=== PATIENT | female | born 1970 | race Caucasian/White ===

== ENCOUNTER → 2019-08-06 | Outpatient (CLI) | payer BC ==
--- NOTE | 2019-08-06 11:14 | MR ---
EXAMINATION TYPE: MR brain wo/w con DATE OF EXAM: 08/06/2019 COMPARISON: Unavailable, comparison made to previous report of 2008 HISTORY: Relapsing remitting mult iple sclerosis TECHNIQUE: Multiplanar, multisequence images of the brain and brainstem is performed without and with IV contras t, utilizing 7.5 mL intravenous Gadavist . FINDINGS: There is artifact presumably from dental work. There are extensive confluent and scattered hyperintensities within the periventricular, pericallosal , subcortical and juxtacortical white matter. Greater than 50 lesions are present. The largest in the pericallosal white matter in the left frontal lobe on axial image 21 measures 10 mm in transverse di mension and on sagittal image #14 11 mm in cephalad to caudal direction, multiple pericallosal foci s how perpendicular arrangement consistent with Stevenson's fingers. Diffusion weighted images demonstrate no evidence of a recent infarct or other diffusion abnormality. Cerebral spinal fluid signal focus is present in the midline inferior to the cerebellum, there may b e an arachnoid cyst present. The ventricular system and cisternal spaces are normal in size and appea dillan. The brain volume is age appropriate. Midline structures demonstrate normal morphology. The craniocervical junction appears within normal limits. Post contrast images demonstrate no abnormal enhancement. The dural venous sinuses appear pa tent. The visualized sinuses are clear and the globes are intact. IMPRESSION: Findings consistent with patient's history of multiple sclerosis. No enhancing plaques ar e evident however. Possible arachnoid cyst inferior posterior fossa.
== END | disposition home or self-care (01) ==
LOC: RADMRIMAIN 09:16
PROVIDERS: ATTEND Psychiatry & Neurology Neurology
DX: G35 Multiple sclerosis (principal)
CPT/HCPCS: 70553; A9585

== ENCOUNTER → 2020-09-14 | Outpatient (CLI) | payer BC ==
--- NOTE | 2020-09-14 15:49 | US ---
EXAMINATION TYPE: US transvaginal DATE OF EXAM: 09/14/2020 COMPARISON: NONE CLINICAL HISTORY: N92.0 Excessive and frequent menstruation. heavy menses with clots for a few years TECHNIQUE: Transvaginal (TV). Date of LMP: 08/21/20 EXAM MEASUREMENTS: Uterus: 10.0 x 5.4 x 6.2 cm Endometrial Stripe: 1.4 cm Right Ovary: 1.8 x 1.4 x 1.6 cm Left Ovary: 3.0 x 1.9 x 2.9 cm 1. Uterus: Anteverted heterogeneous, Nabothian cysts 2. Endometrium: hypoechoic area = 1.2 x 0.9 x 1.0cm 3. Right Ovary: appears wnl 4. Left Ovary: appears wnl 5. Bilateral Adnexa: wnl 6. Posterior cul-de-sac: wnl IMPRESSION: Correlate for appropriate phase of patient's follicular cycle for endometrial stripe montrell carrillo, there is a heterogeneous, masslike appearance to the endometrium at the upper aspect, consider biopsy as indicated, follow-up recommended
== END | disposition home or self-care (01) ==
LOC: RADUSWWP 14:40
PROVIDERS: ATTEND Obstetrics & Gynecology
DX: R93.89 Abnormal findings on diagnostic imaging of other specified body structures (principal)
CPT/HCPCS: 76830

== ENCOUNTER → 2020-11-16 | Outpatient (CLI) | payer BC ==
[2020-11-16 12:33] LABS: Basophils % (A) 0 %; Eosinophils # (A) 0.1 k/uL (0-0.7); Eosinophils % (A) 2 %; HCT 38.9 % (34.0-46.0); HGB 12.3 gm/dL (11.4-16.0); Hypochromasia Slight; Lymphocytes # (A) 0.8 k/uL (1.0-4.8); Lymphocytes % (A) 17 %; MCH 25.1 pg (25.0-35.0); MCHC 31.6 g/dL (31.0-37.0); MCV 79.5 fL (80.0-100.0); Mean Platelet Volume 7.4; Monocytes # (A) 0.4 k/uL (0-1.0); Monocytes % (A) 8 %; Neutrophils # (A) 3.3 k/uL (1.3-7.7); Neutrophils % (A) 71 %; Platelet Count 316 k/uL (150-450); RBC 4.89 m/uL (3.80-5.40); RDW 14.1 % (11.5-15.5); WBC 4.7 k/uL (3.8-10.6)
== END | disposition home or self-care (01) ==
LOC: LABPAT 11:15
PROVIDERS: ATTEND Obstetrics & Gynecology
DX: Z01.818 Encounter for other preprocedural examination (principal)
CPT/HCPCS: 36415; 85025; 93005

== ENCOUNTER 2020-11-25 05:50 | Day surgery (SDC) | payer BC ==
[2020-11-10 14:48] VITALS: BMI 29.9
--- NOTE | 2020-11-24 13:16 | P.HPOB ---
History of Present Illness H&P Date: 11/24/20 Chief Complaint: Menorrhagia, endometrial polyp, cervical polyp This patient is a 50-year-old 2 para 2 female who presented to the office with complaints of heavy bleeding. On examination patient was noted to have a cervical polyp with a broader base and an ultrasound was performed which showed a probable 1.2 cm endometrial polyp. Patient now presents for hysteroscopy, D&C, and polyp removal. Review of Systems Genitourinary: Denies dysuria, Denies hematuria Past Medical History Past Medical History: Thyroid Disorder Additional Past Medical History / Comment(s): MS, overactive bladder, insomnia, IBS, chronic dry eyes, rt leg and bandar hands numbness, states "i have a messed up neck, have lesions" History of Any Multi-Drug Resistant Organisms: None Reported Past Surgical History: Cholecystectomy, Orthopedic Surgery Additional Past Surgical History / Comment(s): thyroidectomy, 2 frozen shoulder sx, knee scopes, rt lef varicose vein ablation Past Anesthesia/Blood Transfusion Reactions: No Reported Reaction Smoking Status: Never smoker Past Alcohol Use History: None Reported Past Drug Use History: None Reported Medications and Allergies Home Medications Medication Instructions Recorded Confirmed Type Levothyroxine Sodium [Synthroid] 100 mcg PO DAILY 04/18/14 11/10/20 History Zolpidem [Ambien] 10 mg PO HS PRN 04/18/14 11/10/20 History ALPRAZolam [Xanax] 0.25 mg PO DAILY PRN 11/10/20 11/10/20 History Alpha Lipoic Acid 600 mg PO DAILY 11/10/20 11/10/20 History Aspirin [Adult Low Dose Aspirin EC] 81 mg PO DAILY 11/10/20 11/10/20 History Calcium 300 mg PO DAILY 11/10/20 History Cholecalciferol (Vitamin D3) 75 mcg PO DAILY 11/10/20 11/10/20 History [Vitamin D3 (3000 Iu)] Chromium Picolinate 1,000 mcg PO DAILY 11/10/20 11/10/20 History Cyanocobalamin (Vitamin B-12) 5,000 mcg PO DAILY 11/10/20 11/10/20 History [Vitamin B-12] Flaxseed Oil 1,000 mg PO DAILY 11/10/20 11/10/20 History Nolvia 500 mg PO DAILY 11/10/20 11/10/20 History Glucosamine Sulfate 500 mg PO DAILY 11/10/20 11/10/20 History Isomethept/Dichlphn/Acetaminop 1 - 2 cap PO Q6H PRN 11/10/20 11/10/20 History [Midrin] Krill Oil 500 mg PO DAILY 11/10/20 11/10/20 History L.acidoph,Paracasei, B.lactis 1 each PO DAILY 11/10/20 11/10/20 History [Probiotic] Losartan [Cozaar] 25 mg PO BID 11/10/20 11/10/20 History Magnesium 500 mg PO DAILY 11/10/20 History Melatonin 5 mg PO HS 11/10/20 11/10/20 History Niacin 500 mg PO DAILY 11/10/20 11/10/20 History Ocrevus 1 applic IV Q180D 11/10/20 History Propylene Glycol/Peg 400/Pf 1 dropper BOTH EYES DIRECTED PRN 11/10/20 11/10/20 History [Systane 0.3-0.4% Eye Drops] Tolterodine Tartrate [Detrol LA] 4 mg PO DAILY 11/10/20 11/10/20 History Tumeric 450 mg PO DAILY 11/10/20 History Vitamin B Complex 1 each PO DAILY 11/10/20 11/10/20 History Zinc 50 mg PO DAILY 11/10/20 11/10/20 History methocarbamoL [Robaxin] 500 mg PO DIRECTED PRN 11/10/20 11/10/20 History Allergies Allergy/AdvReac Type Severity Reaction Status Date / Time amoxicillin trihydrate Allergy Unknown Verified 11/10/20 14:18 [From Augmentin] Penicillins Allergy Unknown Verified 11/10/20 14:18 potassium clavulanate Allergy Unknown Verified 11/10/20 14:18 [From Augmentin] Exam - OBG Physical Exam Abdomen: bowel sounds normal, no diffuse tenderness, no bruit present, no guarding noted, no hepatomegaly, no splenomegaly, no mass Vagina: normal moisture, no discharge Cervix: Cervix has a 1-2 cm polyp with a broad base. Cervix: lesion, no discharge Uterus: normal size Results Ultrasound performed on September 14 showed endometrial thickening to 1.4 cm with a 1.2 cm hypoechoic area suggestive of a polyp. Assessment and Plan Assessment: This is a 50-year-old 2 para 2 female with menorrhagia and ultrasound suggestive of an endometrial polyp as well as a cervical polyp. Plan is hysteroscopy, D&C, and excision of cervical polyp. Patient and I have discussed the surgery and risks including risks of infection, bleeding, possible uterine perforation. All the patient's questions have been answered and a written consent is obtained. (1) Menorrhagia Status: Acute Code(s): N92.0 - EXCESSIVE AND FREQUENT MENSTRUATION WITH REGULAR CYCLE SNOMED Code(s): 992523691 (2) Cervical polyp Status: Acute Code(s): N84.1 - POLYP OF CERVIX UTERI SNOMED Code(s): 17720200
[~2020-11-25 05:50] MED LIST: DEXAMETHASONE SOD PHOSPHATE 4 MG/ML 1 ML VIAL IV ONE; HYDROmorphone 0.5 MG/0.5 ML SYRINGE IVP PRN; LACTATED RINGERS 1,000 ML IV SCH; LIDOCAINE 1% (10MG/ML) FOR IV START INTRADERMA PRN; MIDAZOLAM 2 MG/2 ML VIAL IV PRN; ONDANSETRON 4 MG/2 ML VIAL IVP ONE; Pre Op ABX Message 1 EACH MISC MISCELLANE ONE
[2020-11-25] MEDS ORDERED: SCOPOLAMINE 1.5MG/72HR PATCH TRANSDERM ONE (06:42)
[2020-11-25] MEDS ORDERED: LIDOCAINE 1% INJ 10MG/ML (20 ML MDV) ONE (06:56)
[2020-11-25] MEDS ORDERED: KETOROLAC 15 MG/ML 1 ML VIAL ONE (06:56)
[2020-11-25] MEDS ORDERED: fentaNYL (PF) 50 MCG/ML 2 ML AMP ONE (06:56)
[2020-11-25] MEDS ORDERED: PROPOFOL 10 MG/ML 20 ML VIAL IV ONE (06:56)
[2020-11-25] MEDS ORDERED: MIDAZOLAM 2 MG/2 ML VIAL ONE (06:56)
[2020-11-25 07:37] VITALS: TEMP 98.8
--- NOTE | 2020-11-25 07:43 | P.OP ---
Date of Procedure: 11/25/20 Preoperative Diagnosis: Menorrhagia and cervical polyp Postoperative Diagnosis: Same, cervical nabothian cyst Procedure(s) Performed: Hysteroscopy with D&C, excision of cervical cyst Anesthesia: MAC Surgeon: Ezio Emmanuel Estimated Blood Loss (ml): 10 Urine output (ml): 10 Pathology: other (Uterine curettings and portion cervical cyst) Condition: stable Disposition: PACU Indications for Procedure: Please see dictated H&P for intimate details of this patient's admission. Brief summary this is a pleasant 50-year-old 2 para 2 female who presented with complaints of menorrhagia. Examination showed a 1-2 cm what appeared to be cervical polyp with a broad base and ultrasound showed a thickening of the endometrium was a probable endometrial polyp. Patient now presents for hysteroscopy D&C and excision of the cervical growth. Patient understands this procedure and risks including risks of infection, bleeding, possible uterine perforation. All the patient's questions were answered written consent is obtained. Operative Findings: This patient had a benign appearing trope polyp. She had a 2 cm growths of the cervix which appeared to be nabothian cyst upon removal. Description of Procedure: This patient is taken to the operating room where she is laid in the supine position. She subsequently undergoes general mask anesthesia without incident. With an adequate level of anesthesia, placed in dorsal lithotomy position. She has a vaginal perineal prep and drape. Examination under anesthesia shows a mid position uterus slightly enlarged. First placed a weighted speculum posterior vagina. The bladder is drained for 10 mL of clear urine. I then place an Allis clamp and the anterior lip of the cervix. On the posterior cervix there is approximately 2 cm broad-based growths at approximately 5:00 it appears benign. I first dilate the cervix and sound the uterus to 10 cm. Gentle dilation is then done to allow the hysteroscope into the uterine cavity and hysteroscopy is performed with saline solution. There does appear to be some thickening in the anterior consistent with a polyp. Hysteroscope was then removed. Cervix is dilated more to allow a polyp forceps into the uterine cavity. Multiple passes are made until I believe the polyp was been removed. At this time a gentle but thorough 4 quadrant curettage is then done again for adequate sampling. This done I then turned my attention cervical growths. Place an Allis clamp on the growths immediately does drain mucus fluid consistent with a nabothian cyst. I did excise portion of the cyst and sent off to pathology. Cauterization is then done of the base and the edges. Excellent hemostasis is noted. With this done the procedure is then ended. Allis clamp and weighted speculum removed. All counts are correct 3. There are no complications. Patient is awakened from anesthesia and taken recovery room satisfactory condition.
[2020-11-25 07:47] VITALS: RESP 16
[2020-11-25 08:00] VITALS: PULSE 71
[2020-11-25 08:31] VITALS: BP 124/74
== END 2020-11-25 09:04 | disposition home or self-care (01) ==
LOC: OR 05:50
PROVIDERS: ATTEND Obstetrics & Gynecology
DX: N88.8 Other specified noninflammatory disorders of cervix uteri (principal); N84.1 Polyp of cervix uteri; N92.0 Excessive and frequent menstruation with regular cycle; G35 Multiple sclerosis; N32.81 Overactive bladder; G47.00 Insomnia, unspecified; K58.9 Irritable bowel syndrome, unspecified; H04.129 Dry eye syndrome of unspecified lacrimal gland; M54.2 Cervicalgia; R20.0 Anesthesia of skin; Z90.49 Acquired absence of other specified parts of digestive tract; E89.0 Postprocedural hypothyroidism; Z98.890 Other specified postprocedural states; Z79.82 Long term (current) use of aspirin; Z79.890 Hormone replacement therapy; Z79.899 Other long term (current) drug therapy; Z79.1 Long term (current) use of non-steroidal anti-inflammatories (NSAID); Z88.0 Allergy status to penicillin
CPT/HCPCS: 81025; 88305; 58558; 57500; J2250; J1100; J2405; J2001; J3010; J1885; J2704

== ENCOUNTER → 2023-12-23 | Outpatient (CLI) | payer BC ==
[2023-12-24 10:05] LABS: Natural Killer Cell (CD16/56) 284 cell/ul (60-500); Natural Killer Cell (CD16/56)% 21 % (3-24); T Helper Cell (CD4) 843 cell/ul (443-1471); T Helper Cell (CD4) % 64 % (35-66); T Suppressor Cell (CD8) 221 cell/ul (190-832); T Suppressor Cell (CD8) % 17 % (9-37); T4/T8 Ratio (CD4:CD8) 3.8 (1.0-3.7); Total B Cell (CD19) <14 cell/ul (100-524); Total B Cell (CD19)% <1 % (4-25); Total T Cell (CD3) 1024 cell/ul (704-2138); Total T Cell (CD3)% 78 % (55-86)
== END | disposition home or self-care (01) ==
LOC: LABWHC1 13:01
PROVIDERS: ATTEND Psychiatry & Neurology Neurology
DX: D84.9 Immunodeficiency, unspecified (principal); G35 Multiple sclerosis
CPT/HCPCS: 86355; 86357; 86359; 86360

== ENCOUNTER → 2024-01-07 | Outpatient (CLI) | payer BC ==
[2024-01-07 16:02] LABS: Immunoglobulin M 45.2 mg/dL (40.0-280.0)
== END | disposition home or self-care (01) ==
LOC: LABWHC1 10:51
PROVIDERS: ATTEND Psychiatry & Neurology Neurology
DX: D84.9 Immunodeficiency, unspecified (principal); G35 Multiple sclerosis
CPT/HCPCS: 36415; 82784